=== PATIENT | male | born 1980 | race Caucasian/White ===

== ENCOUNTER 2020-05-11 02:10 | Emergency (ER) | payer MEDICAID, OTHER ==
[~2020-05-11] VITALS: Ht 172.7 cm; Wt 108.9 kg
[2020-05-11 02:11] VITALS: BP 160/75
[2020-05-11 02:46] LABS: BASOPHILS # (AUTO) 0.1 K/uL (0.00-0.22); BASOPHILS % (AUTO) 0.7 % (0.0-2.0); EOSINOPHILS # (AUTO) 0.1 K/uL (0-0.4); EOSINOPHILS % (AUTO) 0.7 % (0.0-4.0); HEMATOCRIT 36.5 % (36-52); HEMOGLOBIN 12.2 g/dL (12.0-18.0); LYMPHOCYTES # (AUTO) 1.7 K/uL (2.0-11.5); LYMPHOCYTES % (AUTO) 14.8 % (20.5-51.1); MEAN CORPUSCULAR HEMOGLOBIN 29 pg (27-31); MEAN CORPUSCULAR HGB CONC 33 g/dL (33-37); MEAN CORPUSCULAR VOLUME 85.8 fL (80-94); MONOCYTES # (AUTO) 0.7 K/uL (0.8-1.0); MONOCYTES % (AUTO) 6.5 % (1.7-9.3); NEUTROPHILS # (AUTO) 8.8 K/uL (1.8-7.7); NEUTROPHILS % (AUTO) 77.3 % (42.2-75.2); PLATELET COUNT (AUTO) 506 K/uL (140-450); RED BLOOD CELL COUNT(AUTO) 4.25 MIL/uL (4.20-6.10); RED CELL DISTRIBUTION WIDTH 12.6 % (11.6-13.7); WHITE BLOOD COUNT (AUTO) 11.4 K/uL (4.8-10.8)
[2020-05-11] MEDS: MORPHINE SULFATE 2 MG/ML SYR IM ONE (02:46)
[2020-05-11] MEDS ORDERED: DOPPLER MC ONE (03:11)
[2020-05-11 03:37] LABS: ALBUMIN 3.1 g/dL (3.4-5.0); ANION GAP 15.6 (8-16); CREATININE 1.2 mg/dL (0.6-1.3); POTASSIUM 3.6 mmol/L (3.5-5.1); TOTAL BILIRUBIN 0.2 mg/dL (0.0-1.0)
[2020-05-11] MEDS: KETOROLAC 30 MG/ML VIAL IVP ONE (03:52)
[2020-05-11] MEDS: NACL 0.9% 500 ML IV ONE (03:53)
[2020-05-11] MEDS: COLCHICINE 0.6 MG TAB PO ONE (03:54)
[2020-05-11 04:15] VITALS: BP 156/90
== END 2020-05-11 04:15 | disposition home or self-care (01) ==
LOC: MED 02:10
DX: L03.032 Cellulitis of left toe (principal); L03.031 Cellulitis of right toe; M79.672 Pain in left foot; M79.671 Pain in right foot; I10 Essential (primary) hypertension
CPT/HCPCS: 36415; 71045; 80053; 83605; 83880; 84550; 85025; 87040; 93005; 96372; 96374; 99285; J1885; J2270; J7030; Q0092